=== PATIENT | female | born 1960 | race Caucasian/White ===

== ENCOUNTER 2021-03-06 18:24 | Emergency (ER) | payer BC, SELFPAY ==
[2021-03-06 18:31] VITALS: BP 125/98; PULSE 98; RESP 16; TEMP 36.2; O2SAT 98
--- NOTE | 2021-03-06 18:56 | ED.GENADULT ---
HPI - General Adult General Chief complaint: Psychiatric Symptoms Stated complaint: anxiety attacks Source: patient and RN notes reviewed Limitations: no limitations History of Present Illness HPI narrative: The patient, on several medications for mood, presents with anxiety. Patient and records indicates she is has a history of outpatient anxiety has never been hospitalized, on Celexa, Ambien and most recently Vistaril/hydroxyzine. Patient states she was recently under more stress with household move of her [id number], and so increased her Vistaril to 25 , without improvement. She has occasional hyperventilation, feels flustered/flushed ; denies SI/HI, weight loss, guilt, crying spells, delusions, hallucinations. No fever, cough, shortness of breath, loss of taste/smell, chest pain-but she has some occasional palpitations; symptoms are mild to moderate unimproved with meds, better with ambulation/pacing. Patient advised of [facility] services in the area; and to follow-up with PMD with whom she is already scheduled Related Data Home Medications Medication Instructions Recorded Confirmed citalopram 20 mg PO DAILY 03/06/21 03/06/21 epinastine 1 drp EACH EYE Q12H 03/06/21 03/06/21 ertugliflozin [Steglatro] 5 mg PO DAILY 03/06/21 03/06/21 estradiol 0.5 mg PO DAILY 03/06/21 03/06/21 glimepiride 0.5 mg PO DAILY 03/06/21 03/06/21 hydroxyzine pamoate 25 mg PO TID PRN 03/06/21 03/06/21 linaclotide [Linzess] 72 mcg PO DAILY 03/06/21 03/06/21 lisinopril 10 mg PO DAILY 03/06/21 03/06/21 metformin 500 mg PO BID 03/06/21 03/06/21 metoclopramide HCl 10 mg PO DAILY 03/06/21 03/06/21 montelukast 10 mg PO HS 03/06/21 03/06/21 oxybutynin chloride 5 mg PO DAILY 03/06/21 03/06/21 rosuvastatin 5 mg PO DAILY 03/06/21 03/06/21 valacyclovir 1,000 mg PO PRN PRN 03/06/21 03/06/21 zolpidem 10 mg PO HS 03/06/21 03/06/21 Allergies Allergy/AdvReac Type Severity Reaction Status Date / Time acetaminophen Allergy Mild NAUSEATED Verified 03/06/21 18:33 HYDROCODONE BIT Allergy Mild NAUSEATED Uncoded 03/06/21 18:33 Review of Systems Review of Systems: General/Constitutional: No weight loss,fever Eyes: N0: Redness,discharge Ears/Nose/Throat: No: Epistaxis,ear discharge Respiratory: Denies: Hemoptysis Gastrointestinal: No Vomiting, Bleeding-rectal Skin: No Lumps, eruption Neurologic: No Focal Weakness,Sz Hematologic: Denies: Petechiae/Purpura Psychiatric: No: Suicida ideationl All Other Systems: Reviewed and Negative PMFSH Comments At time of signature, agree with nursing past medical, surgical, social and family history. There is no relevant family history pertinent to the presenting complaint Exam Narrative: General Appearance: Well appearing, No distress EYE: PERRLA, Conjunctiva clear Ears: External ear normal Nose: Normal nose Mouth/Throat: Normal appearing, Normal lips Neck: Supple Respiratory: Airway patent, No respiratory distress Cardiovascular: RRR Abdomen: Soft, Non-tender, Musculoskeletal: Full ROM Skin: Warm, Dry Neurological: A&O x3, CN II-X intact Psychiatric: anxious mood, Normal affect now Course Vital Signs Vital signs: Vital Signs Temperature 97.1 F L 03/06/21 18:31 Pulse Rate 98 03/06/21 18:31 Respiratory Rate 16 03/06/21 18:31 Blood Pressure 125/98 H 03/06/21 18:31 Pulse Oximetry 98 03/06/21 18:31 Temperature 97.1 F L 03/06/21 18:31 Pulse Rate 98 03/06/21 18:31 Respiratory Rate 16 03/06/21 18:31 Blood Pressure 125/98 H 03/06/21 18:31 Pulse Oximetry 98 03/06/21 18:31 Medical Decision Making Vital Signs Vital Signs: Vital Signs Temperature 97.1 F L 03/06/21 18:31 Pulse Rate 98 03/06/21 18:31 Respiratory Rate 16 03/06/21 18:31 Blood Pressure 125/98 H 03/06/21 18:31 Pulse Oximetry 98 03/06/21 18:31 Temperature 97.1 F L 03/06/21 18:31 Pulse Rate 98 03/06/21 18:31 Respiratory Rate 16 03/06/21 18:31 Blood Pressure 125
== END 2021-03-06 19:33 | disposition home or self-care (01) ==
PROVIDERS: Emergency Provider Emergency Medicine
DX: F41.9 Anxiety disorder, unspecified (principal); E11.9 Type 2 diabetes mellitus without complications; E78.00 Pure hypercholesterolemia, unspecified; I10 Essential (primary) hypertension
CPT/HCPCS: 99213; G0463